=== PATIENT | female | born 1985 | race Caucasian/White ===

== ENCOUNTER 2018-05-06 01:41 | Emergency (ER) | payer OTHER ==
[~2018-05-06] VITALS: Ht 162.6 cm; Wt 79.4 kg
[~2018-05-06 01:41] MED LIST: BIRTH CONTROL
[2018-05-06 02:04] LABS: ABSOLUTE EOSINOPHILS 0.1 thou/uL (0.0-0.7); ABSOLUTE LYMPHOCYTES 3.7 thou/uL (0.8-5.3); ABSOLUTE MONOCYTES 1.2 thou/uL (0.0-1.2); BASOPHILS 0.4 %; HEMATOCRIT 36.2 % (37.0-47.0); HEMOGLOBIN 11.8 gm/dL (12.0-15.0); MCH 26.4 pg (26.0-34.0); MCHC 32.5 g/dL (28.0-37.0); MCV 81.2 fL (80.0-100.0); MONOCYTES 10.9 %; MPV 7.2 fl. (7.2-11.1); NUCLEATED RBCS 0 /100WBC; PLATELET COUNT* 362 thou/uL (150-400); POLYS 54.7 %; RBC 4.46 mil/uL (4.20-5.00); RDW-CV 14.6 % (10.5-14.5); WBC 11.1 thou/uL (4.0-11.0)
[2018-05-06 02:13] LABS: ANION GAP 7 mmol/L (7-16); BUN 12 mg/dL (7-18); CALCIUM 8.8 mg/dL (8.5-10.1); CHLORIDE 101 mmol/L (98-107); CO2 29 mmol/L (21-32); CREATININE 0.9 mg/dL (0.6-1.3); GLUCOSE 104 mg/dL (70-99); POTASSIUM 3.3 mmol/L (3.5-5.1); SODIUM 137 mmol/L (136-145)
[2018-05-06 02:16] LABS: PROTIME 10.3 Seconds (9.20-11.50)
[2018-05-06 02:24] LABS: ALBUMIN 3.6 g/dL (3.4-5.0); ALKALINE PHOSPHATASE 106 U/L (46-116); NT-PRO BRAIN NAT PEPTIDE 53 pg/mL (<300); SGOT 14 U/L (15-37); SGPT 16 U/L (30-65); TOTAL BILIRUBIN 0.3 mg/dL (<0.1-1.0); TOTAL PROTEIN 8.4 g/dL (6.4-8.2); TROPONIN-I LEVEL <0.06 ng/mL (<0.06)
[2018-05-06 02:30] LABS: URINE BILIRUBIN NEGATIVE (Negative); URINE BLOOD NEGATIVE (Negative); URINE CLARITY CLEAR; URINE COLOR YELLOW; URINE GLUCOSE-RANDOM NEGATIVE (Negative); URINE KETONES NEGATIVE (Negative); URINE LEUKOCYTES-REFLEX NEGATIVE (Negative); URINE NITRITE-REFLEX NEGATIVE (Negative); URINE PROTEIN NEGATIVE (Negative); URINE UROBILINOGEN 0.2 E.U./dl (0.2-1.0)
[2018-05-06] MEDS ORDERED: NORCO 7.5-3251 EACH PO (03:52)
[2018-05-06] MEDS ORDERED: AUGMENTIN 875-1 EACH PO (03:52)
[2018-05-06 04:04] VITALS: BP 110/85
--- NOTE | 2018-05-06 12:41 | EKG ---
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
[2018-05-06] MEDS ORDERED: AZITHROMYCIN250 MG PO (18:39)
[2018-05-06] MEDS ORDERED: PROAIR HFA8.5 GM INH (18:39)
[2018-05-06] MEDS ORDERED: DIFLUCAN150 MG PO (18:39)
== END 2018-05-06 04:05 | disposition home or self-care (01) ==
LOC: M.ERS 01:41
PROVIDERS: Emergency Medicine
DX: R07.89 Other chest pain (principal); R59.1 Generalized enlarged lymph nodes

== ENCOUNTER 2018-05-06 15:16 | Emergency (ER) | payer OTHER ==
[~2018-05-06] VITALS: Ht 162.6 cm; Wt 79.4 kg
[~2018-05-06 15:16] MED LIST changes: +AUGMENTIN 875-1 EACH PO; +NORCO 7.5-3251 EACH PO
[2018-05-06 16:39] LABS: ABSOLUTE EOSINOPHILS 0.1 thou/uL (0.0-0.7); ABSOLUTE LYMPHOCYTES 2.4 thou/uL (0.8-5.3); ABSOLUTE NEUTROPHILS 5.7 thou/uL (1.6-8.1); BASOPHILS 0.3 %; EOSINOPHILS 0.9 %; HEMATOCRIT 35.9 % (37.0-47.0); HEMOGLOBIN 11.6 gm/dL (12.0-15.0); MCH 26.3 pg (26.0-34.0); MCHC 32.3 g/dL (28.0-37.0); MCV 81.4 fL (80.0-100.0); MONOCYTES 10.8 %; MPV 7.7 fl. (7.2-11.1); NUCLEATED RBCS 0 /100WBC; PLATELET COUNT* 354 thou/uL (150-400); RBC 4.41 mil/uL (4.20-5.00); RDW-CV 14.9 % (10.5-14.5); WBC 9.3 thou/uL (4.0-11.0)
[2018-05-06 16:42] LABS: CALCIUM 8.8 mg/dL (8.5-10.1); CREATININE 0.8 mg/dL (0.6-1.3); POTASSIUM 3.3 mmol/L (3.5-5.1)
[2018-05-06 16:47] LABS: ALBUMIN 3.4 g/dL (3.4-5.0); TOTAL BILIRUBIN 0.3 mg/dL (<0.1-1.0); TOTAL PROTEIN 8.1 g/dL (6.4-8.2)
[2018-05-06] MEDS ORDERED: PROAIR HFA8.5 GM INH (18:39)
[2018-05-06] MEDS ORDERED: DIFLUCAN150 MG PO (18:39)
[2018-05-06] MEDS ORDERED: AZITHROMYCIN250 MG PO (18:39)
[2018-05-06 18:49] VITALS: BP 125/83
--- NOTE | 2018-05-08 10:10 | EKG ---
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1985 Requested By: Kathi Quinonez Order Number: [id number] MD: Andrey Emerson Measurements Intervals [place] Rate: 85 P: 51 SD: 148 QRS: 14 QRSD: 170 T: 16 QT: 364 QTc: 433 Interpretive Statements Sinus rhythm Compared to ECG 05/06/2018 01:48:02 no significant changes noted Electronically Signed On 05-08-2018 10:10:19 CATERING COORDINATOR by Andrey Emerson [email or web address] <ELECTRONICALLY SIGNED> By: Andrey Emerson MD, [facility] 05/08/18 1010 1520 1520 Andrey Emerson MD, FACC /EPI
== END 2018-05-06 18:49 | disposition home or self-care (01) ==
LOC: M.ERS 15:16
PROVIDERS: Nurse Practitioner Family
DX: J18.9 Pneumonia, unspecified organism (principal); R07.89 Other chest pain

== ENCOUNTER 2019-06-10 20:15 | Emergency (ER) | payer OTHER ==
[~2019-06-10] VITALS: Ht 162.6 cm; Wt 81.7 kg
[~2019-06-10 20:15] MED LIST changes: +AZITHROMYCIN250 MG PO; +DIFLUCAN150 MG PO; +PROAIR HFA8.5 GM INH
[2019-06-10] MEDS ORDERED: APRI1 EACH (20:29)
[2019-06-10 20:51] LABS: INFLUENZA A ANTIGEN Negative (Negative); INFLUENZA B ANTIGEN Negative (Negative)
[2019-06-10] MEDS ORDERED: ZPAK PO (21:06)
[2019-06-10] MEDS ORDERED: AMOXICILLIN875 MG PO (21:06)
[2019-06-10] MEDS ORDERED: VENTOLIN HFA 1818 GM INH (21:06)
[2019-06-10] MEDS ORDERED: MEDROLDOSEPACK PO (21:06)
[2019-06-10 21:35] VITALS: BP 128/84
== END 2019-06-10 21:15 | disposition home or self-care (01) ==
LOC: M.ERS 20:15
PROVIDERS: Nurse Practitioner Family
DX: J18.9 Pneumonia, unspecified organism (principal); M79.10 Myalgia, unspecified site